=== PATIENT | female | born 1970 ===

== ENCOUNTER → 2019-04-22 | Outpatient (CLI) | payer OTHER | END | disposition home or self-care (01) | LOC: LAB SHORT 13:19 → LAB EV 13:19 | DX: T14.8XXA Other injury of unspecified body region, initial encounter (principal) | CPT/HCPCS: 87070; 87075; 87205 ==

== ENCOUNTER 2022-10-15 13:38 | Day surgery (SDC) | payer OTHER ==
[~2022-10-15] VITALS: Ht 165.1 cm; Wt 81.4 kg
[2022-10-15] MEDS ORDERED: CELEXA40 M1 (14:13)
[2022-10-15] MEDS ORDERED: HYDHCL25 (14:13)
[2022-10-15] MEDS ORDERED: IBUP800 (14:13)
== END 2022-10-15 16:22 | disposition home or self-care (01) ==
LOC: ORSCSDS 13:38
PROVIDERS: Internal Medicine Gastroenterology
PROC: 0DJD8ZZ Inspection of Lower Intestinal Tract, Via Natural or Artificial Opening Endoscopic (ICD-10-PCS; principal; 2022-10-15 15:00)
DX: Z12.11 Encounter for screening for malignant neoplasm of colon (principal); K57.30 Diverticulosis of large intestine without perforation or abscess without bleeding; K64.4 Residual hemorrhoidal skin tags; I10 Essential (primary) hypertension; F41.1 Generalized anxiety disorder; E78.5 Hyperlipidemia, unspecified; Z79.899 Other long term (current) drug therapy
CPT/HCPCS: J0330; J0461; J2405; J2704; J7120; Q9968